=== PATIENT | male | born 1970 | race Caucasian/White ===

== ENCOUNTER 2022-01-01 19:40 | Emergency (ER) | payer BC, SELFPAY ==
[2022-01-01] VITALS (41 sets, daily range): BP systolic 102–138; BP diastolic 33–78; PULSE 77–95; RESP 12–36; TEMP 36.9; O2SAT 94–100
[2022-01-01 20:03] LABS: BE (Venous) 2 mmol/L (-2-3); HCO3 (Venous) 28 mmol/L (23-28); O2 Sat (Venous) 60 %; TCO2 (Venous) 25 mmol/L (24-29); pCO2 (Venous) 49 mmHg (41-51); pH (Venous) 7.36 (7.31-7.41); pO2 (Venous) 28 mmHg
[2022-01-01 20:08] LABS: Abs Immature Grans 0.04 10^3/uL (0.0-0.06); Absolute Basophil Count 0.06 10^3/uL (0.0-0.2); Absolute Monocyte Count 0.64 10^3/uL (0.1-0.8); Absolute Neutrophil Count 6.84 10^3/uL (1.2-6.7); Basophils % 0.7; Eosinophils % 2.4; HCT 36.9 % (40.0-50.0); HGB 13.2 g/dL (13.5-17.5); Immature Grans % 0.5; Lymphocytes % 7.2; MCH 31.2 pg (27.0-33.0); MCHC 35.8 % (32.0-36.0); MCV 87 fL (80-95); Monocytes % 7.6; Neutrophils % 81.6; RBC 4.23 10^6/uL (4.36-5.78); RDW 14.7 % (11.8-14.1); RDW-SD 47.3 fL; WBC 8.38 10^3/uL (4.4-10.8)
[2022-01-01 20:15] LABS: Bilirubin Negative (Negative); Blood Negative (Negative); Clarity Clear (Clear); Glucose >=1000 mg/dL (Negative); Ketones Negative (Negative); Leukocyte Esterase Negative (Negative); Nitrite Negative (Negative); Urobilinogen 0.2 EU/dL (Up TO 0.2)
[2022-01-01 20:22] LABS: ALT 47 U/L (16-63); AST 28 U/L (15-37); Albumin 3.8 g/dL (3.4-5.0); Alkaline Phosphatase 110 U/L (46-116); Anion Gap 8.4 mmol/L (3-11); BUN 10 mg/dL (7-18); Bilirubin, Total 0.4 mg/dL (0.2-1.0); CO2 28.6 mmol/L (21.0-32.0); Calcium 8.5 mg/dL (8.5-10.1); Chloride 106 mmol/L (98-107); Estimated GFR 91.69 (mL/min/1.73m2); Glucose 61 mg/dL (74-106); Magnesium 1.8 mg/dL (1.8-2.4); Potassium 3.6 mmol/L (3.5-5.1); Sodium 143 mmol/L (136-145); Total Protein 7.1 g/dL (6.4-8.2)
[2022-01-01 20:26] LABS: Platelet Count 141 10^3/uL (130-400)
[2022-01-01 20:27] LABS: Diff Comment Agrees w/ Instrument; RBC Morphology Normal
[2022-01-01 21:38] LABS: Source Nasal/Nares
[2022-01-01 22:13] LABS: COVID-19 PCR POSITIVE (Negative)
--- NOTE | 2022-01-01 22:59 | ED.GENADUL_ITS ---
Discharge Plan Disposition Patient Disposition: HOME Condition: Stable Discharge Details Clinical Impression: COVID Primary Care Provider: Mahin Ahumada ED Provider: David Chinchilla Home Meds and New Rx's Prescriptions: Continued Jardiance 10 mg Tablet 10 mg PO DAILY insulin lispro [Humalog KwikPen Insulin] 100 unit/mL Insulin Pen SUBCUT Rx Instructions: sliding scale gabapentin 300 mg Tablet 300 mg PO TID pregabalin 200 mg Capsule 200 mg PO TID Tresiba FlexTouch U-100 100 unit/mL (3 mL) Insulin Pen 14 unit SUBCUT .QAM Discharge Instructions Additional Instructions: You may continue to use [id number] pain and fever medications as directed on packaging. Stay well-hydrated and get plenty of rest during viral illness and if you develop any severe worsening of symptoms including shortness of breath, difficulty breathing, or other concerning findings return immediately to the emergency department for reassessment. Referrals: Mahin Ahumada [Primary Care Provider] - 1 week (As needed for reassessment or if not improving in the next week) Discharge Data Discharge Date/Time-TO BE ENTERED AT DEPARTURE: 01/02/22 00:04 Medical Decision Making Patient presenting to the emergency department via EMS for chief complaint of feeling ill similar to previous episodes of hypoglycemia. Patient did take his sugar which was 220 so he took his sliding scale 2 units rapid acting. Since then he is continue to feel about the same with sugar dropping. Sugar upon arrival to the emergency department was 69. Will give patient additional food and orange juice to see if patient's symptoms are secondary to rapid drop of sugar but patient has no signs of diabetic coma and is stable at this time. Physical exam is otherwise unremarkable. We will continue to check patient's labs. We will also consider COVID testing. Reviewed patient's labs that showed normal VBG, slight anemia on CBC but otherwise nondiagnostic with slight elevation of neutrophils and low lymphocytes but nondiagnostic. CMP shows no significant anion gap, glucose of 61, magnesium 1.8, and otherwise unremarkable CMP. Urinalysis is also unremarkable except for glucose being greater than 1000. Patient is positive for COVID-19. I feel this is more likely the cause of patient's symptoms than his sugar changes. Did discuss with patient vaccine status which she states he is unvaccinated. Called on-call pharmacist and discussed monoclonal antibody versus Paxlovid. Reviewed patient's medications along with GFR and recommendation was for patient to be started on Paxlovid. Discussed with patient return and follow-up precautions. After discussion of diagnosis and plan of care patient has no further needs, questions, or concerns and states clear understanding to return to the emergency department for any worsening symptoms. This documentation was generated using [employer] system, please disregard any oddities of phrase or misspellings. HPI General Mode of arrival: EMS . Date/Time Provider Initiated Documentation: 01/01/22 19:48 . Limitations to Documentation: no limitations . Information obtained by: patient and RN notes reviewed . History of Present Illness 51 year old M presents to the emergency department with the chief complaint of not feeling well, described as similar to prior episodes, Quality is described as other (Denies pain or discomfort), Patient started experiencing this hour(s) (1) and it has been constant. No relieving factors improve symptom(s), No exacerbating factors reported . Patient notes no other symptoms.. Patient did receive the following treatments prior to arrival, other (2 units rapid acting insulin) Related Data Home Medications Medication Instructions Recorded Confirmed empagliflozin 10 mg tablet 10 mg PO DAILY 01/01/22 01/01/22 (Jardiance) gabapentin 300 mg tablet 300 mg PO TID 01/01/22 01/01/22 insulin degludec 100 unit/mL (3 14 unit subcut .QAM 01/01/22 01/01/22 mL) subcutaneous pen (Tresiba FlexTouch U-100 insulin) insulin lispro 100 unit/mL subcut 01/01/22 subcutaneous pen (Humalog KwikPen (U-100) Insulin) pregabalin 200 mg capsule 200 mg PO TID 01/01/22 01/01/22 Allergies Allergy/AdvReac Type Severity Reaction Status Date / Time No Known Allergies Allergy Unverified 01/01/22 19:52 General Stated Complaint: Diabetes KEIRY: 3 Review of Systems Constitutional Constitutional: Reports chills, Denies fatigue, Denies fever(s), Denies headache(s) and Reports malaise Eyes Eyes: Denies change in vision ENT Ears, Nose, Mouth, and Throat: Denies dizziness and Denies headache(s) Cardiovascular Cardiovascular: Denies chest pain, Denies syncope, Reports lightheadedness and Denies dyspnea Respiratory Respiratory: Denies cough and Denies dyspnea Gastrointestinal Gastrointestinal: Denies abdominal pain, Denies diarrhea, Denies nausea and Denies vomiting Genitourinary Genitourinary: Denies urinary frequency Musculoskeletal Musculoskeletal: Denies myalgias Integumentary/Breasts Skin/Breast: Denies rash Neurologic Neurologic: Denies dizziness, Denies syncope and Denies headache(s) Endocrine Endocrine: Denies fatigue, Denies polydipsia and Denies polyuria PFSH All Active Problems (Updated 01/02/22 @ 12:37 by David Chinchilla NP) History of pancreatitis (Acute) Type 1 diabetes (Acute) COVID (Acute) Social History Smoking/Tobacco Use Status: Current every day Tobacco Type: cigarettes Smoking risk assessment performed?: Yes Alcohol Intake: former Drug use: Daily Substance use type: does not use and marijuana Exam Const General: cooperative, no acute distress, not diaphoretic and ill appearing acutely Orientation: alert, awake and oriented x3 HENMT Mouth: moist mucous membranes Resp Effort & Inspection: normal respiratory effort, able to speak in complete sentences and no respiratory distress Auscultation: clear to auscultation bilaterally Cardio Rate: regular rate Rhythm: regular rhythm Heart Sounds: S1 normal and S2 normal Skin General skin exam: no rashes or lesions noted Neuro General: patient alert, patient awake, patient oriented x3, moves all extremities and no focal motor deficits Sensory Exam: no sensory deficits noted Course Vital Signs Vital signs: Vital Signs Temperature 36.9 C 01/01/22 19:46 Pulse 81 01/01/22 19:46 Respiratory Rate 01/01/22 19:46 Blood Pressure 119/78 01/01/22 19:46 Pulse Oximetry 99 01/01/22 19:46 Temperature 36.9 C 01/01/22 19:46 Temperature Source Temporal Artery Scan 01/01/22 19:46 Pulse 77 01/01/22 20:04 Pulse 84 01/01/22 20:10 Respiratory Rate 01/01/22 20:10 Respiratory Effort 01/01/22 19:46 Blood Pressure 131/68 01/01/22 20:04 Blood Pressure Mean 85 01/01/22 20:04 Blood Pressure Position Sitting 01/01/22 19:46 Pulse Oximetry 99 01/01/22 20:10 Oxygen Delivery Method Room Air 01/01/22 19:46 Oxygen Flow Rate 0 01/01/22 19:46 Pain Level 7 01/01/22 19:46 Lab/Test Results Lab/Test Results: Laboratory Tests Range/Units 01/01/22 01/01/22 01/01/22 20:00 20:00 20:00 WBC (4.4-10.8) 10^3/uL 8.38 RBC (4.36-5.78) 10^6/uL 4.23 L Hgb (13.5-17.5) g/dL 13.2 L Hct (40.0-50.0) % 36.9 L MCV (80-95) fL 87 MCH (27.0-33.0) pg 31.2 MCHC (32.0-36.0) % 35.8 RDW (11.8-14.1) % 14.7 H Plt Count (130-400) 10^3/uL 141 MPV (8.0-11.0) fL 12.0 H Immature Gran % 0.5 Neutrophils % 81.6 Lymphocytes % 7.2 Monocytes % 7.6 Eosinophils % 2.4 Basophils % 0.7 Nucleated RBC % (0.0-0.3) % 0.0 Absolute Neutrophils (1.2-6.7) 10^3/uL 6.84 H Absolute Lymphocytes (1.2-3.4) 10^3/uL 0.60 L Absolute Monocytes (0.1-0.8) 10^3/uL 0.64 Absolute Eosinophils (0.0-0.7) 10^3/uL 0.20 Absolute Basophils (0.0-0.2) 10^3/uL 0.06 RBC Morphology Normal VBG pH (7.31-7.41) 7.36 VBG pCO2 (41-51) mmHg 49 VBG pO2 mmHg 28 VBG HCO3 (23-28) mmol/L 28 VBG Total CO2 (24-29) mmol/L 25 VBG O2 Saturation % 60 VBG Base Excess (-2-3) mmol/L 2 Sodium (136-145) mmol/L 143 Potassium (3.5-5.1) mmol/L 3.6 Chloride (98-107) mmol/L 106 Carbon Dioxide (21.0-32.0) mmol/L 28.6 Anion Gap (3-11) mmol/L 8.4 BUN (7-18) mg/dL 10 Creatinine (0.70-1.30) mg/dL 1.0 Est GFR (CKD-EPI 2020) (mL/min/1.73m2) 91.69 Glucose (74-106) mg/dL 61 L Calcium (8.5-10.1) mg/dL 8.5 Magnesium (1.8-2.4) mg/dL 1.8 Total Bilirubin (0.2-1.0) mg/dL 0.4 AST (15-37) U/L 28 ALT (16-63) U/L 47 Alkaline Phosphatase (46-116) U/L 110 Total Protein (6.4-8.2) g/dL 7.1 Albumin (3.4-5.0) g/dL 3.8 Urine Color (Yellow) Urine Clarity (Clear) Urine pH (5-8) Ur Specific Laurel (1.005-1.025) Urine Protein (Negative) mg/dL Urine Ketones (Negative) mg/dL Urine Blood (Negative) Urine Nitrite (Negative) Urine Bilirubin (Negative) Urine Urobilinogen (Up TO 0.2) EU/dL Ur Leukocyte Esterase (Negative) Urine Glucose (Negative) mg/dL COVID-19 Source SARS-CoV-2 (PCR) (Negative) Range/Units 01/01/22 01/01/22 20:05 21:35 WBC (4.4-10.8) 10^3/uL RBC (4.36-5.78) 10^6/uL Hgb (13.5-17.5) g/dL Hct (40.0-50.0) % MCV (80-95) fL MCH (27.0-33.0) pg MCHC (32.0-36.0) % RDW (11.8-14.1) % Plt Count (130-400) 10^3/uL MPV (8.0-11.0) fL Immature Gran % Neutrophils % Lymphocytes % Monocytes % Eosinophils % Basophils % Nucleated RBC % (0.0-0.3) % Absolute Neutrophils (1.2-6.7) 10^3/uL Absolute Lymphocytes (1.2-3.4) 10^3/uL Absolute Monocytes (0.1-0.8) 10^3/uL Absolute Eosinophils (0.0-0.7) 10^3/uL Absolute Basophils (0.0-0.2) 10^3/uL RBC Morphology VBG pH (7.31-7.41) VBG pCO2 (41-51) mmHg VBG pO2 mmHg VBG HCO3 (23-28) mmol/L VBG Total CO2 (24-29) mmol/L VBG O2 Saturation % VBG Base Excess (-2-3) mmol/L Sodium (136-145) mmol/L Potassium (3.5-5.1) mmol/L Chloride (98-107) mmol/L Carbon Dioxide (21.0-32.0) mmol/L Anion Gap (3-11) mmol/L BUN (7-18) mg/dL Creatinine (0.70-1.30) mg/dL Est GFR (CKD-EPI 2020) (mL/min/1.73m2) Glucose (74-106) mg/dL Calcium (8.5-10.1) mg/dL Magnesium (1.8-2.4) mg/dL Total Bilirubin (0.2-1.0) mg/dL AST (15-37) U/L ALT (16-63) U/L Alkaline Phosphatase (46-116) U/L Total Protein (6.4-8.2) g/dL Albumin (3.4-5.0) g/dL Urine Color (Yellow) Yellow Urine Clarity (Clear) Clear Urine pH (5-8) 6.0 Ur Specific La[place] (1.005-1.025) 1.020 Urine Protein (Negative) mg/dL Negative Urine Ketones (Negative) mg/dL Negative Urine Blood (Negative) Negative Urine Nitrite (Negative) Negative Urine Bilirubin (Negative) Negative Urine Urobilinogen (Up TO 0.2) EU/dL 0.2 Ur Leukocyte Esterase (Negative) Negative Urine Glucose (Negative) mg/dL >=1000 H COVID-19 Source Nasal/Nares SARS-CoV-2 (PCR) (Negative) POSITIVE A*
[2022-01-02 00:10] VITALS: BP 106/63; PULSE 79; RESP 24; TEMP 36.9; O2SAT 95
== END 2022-01-02 00:04 | disposition home or self-care (01) ==
PROVIDERS: Emergency Provider Nurse Practitioner Family; PCP Urology
DX: U07.1 COVID-19 (principal); E10.649 Type 1 diabetes mellitus with hypoglycemia without coma; D64.9 Anemia, unspecified; F17.210 Nicotine dependence, cigarettes, uncomplicated
CPT/HCPCS: 36415; 36416; 80053; 82805; 82962; 87635; 99283; 81003; 83735; 85025; 99284

== ENCOUNTER 2024-02-19 01:04 | Outpatient (CLI) | payer BC, SELFPAY ==
--- NOTE | 2024-02-19 07:30 | DI.RAD_ITS ---
Exam(s) XR TOE LT FIFTH EXAM: XR TOE LT FIFTH CLINICAL HISTORY: medial ulcer, ? OM,l97.522. TECHNIQUE: 2D digital imaging was performed. Four views were obtained. COMPARISON: No exams were available for comparison FINDINGS: BONES: No acute fracture is present. No bony destructive lesion is seen. There is limited visualiza tion of the 5th toe on the lateral view due to patient positioning. JOINTS: No dislocation present. SOFT TISSUE: No soft tissue gas is appreciated. IMPRESSION: Within the limits of the examination, no evidence of osteomyelitis is seen radiographically. DATA REPOSITORY: RADIATION DOSE DELIVERED:
== END 2024-02-19 01:24 ==
LOC: DI 01:04
PROVIDERS: PCP Family Medicine; Visit Provider Podiatrist
DX: L97.522 Non-pressure chronic ulcer of other part of left foot with fat layer exposed (principal)
CPT/HCPCS: 73660

== ENCOUNTER 2024-04-15 12:08 | Outpatient (CLI) | payer BC, SELFPAY ==
--- NOTE | 2024-04-15 16:17 | DI.RAD_ITS ---
Exam(s) XR FOOT LT COMPLETE EXAM: XR FOOT LT COMPLETE CLINICAL HISTORY: L97.522 Fifth metatarsal head. TECHNIQUE: 2D digital imaging was performed. COMPARISON: CR XR TOE LT FIFTH from 02/19/2024 FINDINGS: 3 views No evidence of acute fracture or diastasis of the Lisfranc joint. No pes planus. Great toe metatars ophalangeal joint appears unremarkable. With respect to the 5th metatarsal head, there is no evidence of fracture nor radiopaque foreign body . There is no obvious radiographic evidence of osteomyelitis at this level nor elsewhere in the foot . Again noted is some probable callus formation at the midshaft level the proximal phalanges of the 2nd and 3rd toes, unchanged and possibly related to prior healed fractures at these levels. IMPRESSION: No significant radiographic change compared to images of 02/19/2024. There is no radiographic eviden ce of osteomyelitis at the 5th metatarsal head evident on these images. DATA REPOSITORY: RADIATION DOSE DELIVERED:
== END 2024-04-15 12:28 ==
LOC: DI 06-18 12:08
PROVIDERS: Visit Provider Podiatrist
DX: L97.522 Non-pressure chronic ulcer of other part of left foot with fat layer exposed (principal)
CPT/HCPCS: 73630

== ENCOUNTER 2024-04-15 15:40 | Outpatient (REF) | payer BC, SELFPAY | END 2024-04-15 15:41 | disposition home or self-care (01) | LOC: LBN 15:40 | PROVIDERS: PCP Family Medicine; Visit Provider Podiatrist | DX: L02.612 Cutaneous abscess of left foot (principal) | CPT/HCPCS: 87077; 87070; 87075; 87186; 87205 ==